=== PATIENT | female | born 1990 | race Caucasian/White ===

== ENCOUNTER 2018-03-11 15:09 | Emergency (ER) | payer OTHER ==
[2018-03-11] MEDS: IBUPROFEN 800 MG TAB PO (15:45)
== END 2018-03-11 16:54 | disposition home or self-care (01) ==
LOC: FTE 15:09
DX: S62.636A Displaced fracture of distal phalanx of right little finger, initial encounter for closed fracture (principal); W23.0XXA Caught, crushed, jammed, or pinched between moving objects, initial encounter; Y92.321 Football field as the place of occurrence of the external cause
CPT/HCPCS: 29130; 73140; 99283-25